=== PATIENT | female | born 2000 | race African-American/Black ===

== ENCOUNTER 2022-12-26 20:01 | Emergency (ER) | payer SELFPAY ==
[2022-12-26] MEDS ORDERED: KETOROLAC 30 MG/ML INJ ONE (21:49)
[2022-12-26 21:55] LABS: Absolute Lymphocytes (CBC) 2.1 K/uL (0.7-4.9); Hematocrit 37.8 % (36.0-45.0); MCV 85.2 fL (80-100); MPV 10.2 fL (7.6-11.3); RBC Red Blood Cell Count 4.44 M/uL (3.86-4.86)
[2022-12-26 22:00] LABS: SARS-CoV-2 Antigen Rapid Res Negative (Negative)
[2022-12-26 22:10] LABS: Magnesium 2.2 mg/dL (1.6-2.4); Potassium 3.5 mEq/L (3.5-5.1)
[2022-12-26 22:29] LABS: Protime INR 1.13
--- NOTE | 2022-12-26 22:40 | RAD REPORT ---
EXAM DESCRIPTION: [place] Single View12/26/2022 10:26 pm CLINICAL HISTORY: SOBChest pain COMPARISON: No comparisons TECHNIQUE: Portable AP view of the chest. FINDINGS: The lungs are clear. No pneumothorax or effusion. The cardiomediastinal contours are unre markable. IMPRESSION: No acute cardiopulmonary process.
[2022-12-26 22:57] LABS: Specific Gravity 1.006 (1.005-1.030); Urine Bacteria <20 /HPF (<20); Urine Bilirubin NEGATIVE (Negative); Urine Blood 1+ (Negative); Urine Clarity Clear (Clear); Urine Color Colorless (Yellow); Urine Glucose NEGATIVE (Negative); Urine Mucus Slight /HPF (None Seen); Urine Protein NEGATIVE (Negative); Urine RBC <5 /HPF (None Seen); Urine Urobilinogen Normal (Normal); Urine pH 6.5 (5.0-7.0)
[2022-12-27 00:19] LABS: Specific Gravity 1.006 (1.005-1.030)
--- NOTE | 2022-12-27 02:32 | ER ---
Nurse's Notes [facility] Name: Christian Galindo Age: 22 yrs Sex: Female : 2000 Arrival Date: 12/26/2022 Time: 20:01 Bed 18 Private MD: Diagnosis: Chest pain, unspecified;Dorsalgia, unspecified;Shortness of breath Presentation: 12/26 20:21 Chief complaint: Patient states: "I'm having chest pain and shortness of breath that's vc1 radiating to my back. I checked my temperature before I left the house and felt like I was running a temperature.". Coronavirus screen: Vaccine status: Patient reports receiving the 2nd dose of the covid vaccine. Moderna Client denies travel out of the [place] in the last 14 days. chills, difficulty breathing, fatigue, fever, shortness of breath, Client presents with at least one sign or symptom that may indicate coronavirus-19. Ebola Screen: Patient negative for fever greater than or equal to 101.5 degrees Fahrenheit, and additional compatible Ebola Virus Disease symptoms Patient denies exposure to infectious person. Patient denies travel to an Ebola-affected area in the 21 days before illness onset. No symptoms or risks identified at this time. Initial Sepsis Screen: Does the patient meet any 2 criteria? HR > 90 bpm. No. Patient's initial sepsis screen is negative. Does the patient have a suspected source of infection? No. Patient's initial sepsis screen is negative. Risk Assessment: Do you want to hurt yourself or someone else? Patient reports no desire to harm self or others. Onset of symptoms was December 24, 2022. 20:21 Method Of Arrival: Ambulatory vc1 20:21 Acuity: GONZÁLEZ 3 vc1 Triage Assessment: 20:24 General: Appears in no apparent distress. uncomfortable, ill, Behavior is calm, vc1 cooperative, appropriate for age. Pain: Complains of pain in chest Pain radiates to back Pain currently is 9 out of 10 on a pain scale. Quality of pain is described as sharp, Aggravated by cough. EENT: Reports post nasal drainage. Neuro: Level of Consciousness is awake, alert, obeys commands, Oriented to person, place, time, situation, Appropriate for age. Cardiovascular: Reports chest pain, Chest pain is described as severe, quality is sharp, radiates back is aggravated by breathing, cough. Respiratory: Airway is patent Respiratory effort is even, unlabored, Respiratory pattern is regular, symmetrical. Respiratory: Reports shortness of breath at rest pain with cough. GI: No deficits noted. No signs and/or symptoms were reported involving the gastrointestinal system. : No deficits noted. No signs and/or symptoms were reported regarding the genitourinary system. Derm: No deficits noted. No signs and/or symptoms reported regarding the dermatologic system. Musculoskeletal: No deficits noted. No signs and/or symptoms reported regarding the musculoskeletal system. 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 - Social history:: Smoking status: Patient denies any tobacco usage or history of. Screenin:20 [facility] ED Fall Risk Assessment (Adult) History of falling in the last 3 months, vc1 including since admission No falls in past 3 months (0 pts) Confusion or Disorientation No (0 pts) Intoxicated or Sedated No (0 pts) Impaired Gait No (0 pts) Mobility Assist Device Used No (0 pt) Altered Elimination No (0 pt) Score/Fall Risk Level 0 - 2 = Low Risk Oriented to surroundings, Maintained a safe environment, Educated pt \\T\\ family on fall prevention, incl call for assistance when getting out of bed. 12/27 02:33 Abuse screen: Denies threats or abuse. Denies injuries from another. Nutritional ha1 screening: No deficits noted. Tuberculosis screening: No symptoms or risk factors identified. Assessment: 12/26 20:20 General: Appears comfortable, Behavior is calm, cooperative. Pain: Complains of pain in ha1 back and chest Pain does not radiate. Pain at worst was 7 out of 10 on a pain scale. Quality of pain is described as pressure, Pain began gradually, 2-3 days ago. Neuro: Level of Consciousness is awake, alert, obeys commands, Oriented to person, place, time, situation. Cardiovascular: Heart tones S1 S2 present Patient's skin is warm and dry. Rhythm is sinus rhythm. Respiratory: Airway is patent Respiratory effort is even, unlabored, Respiratory pattern is regular, symmetrical. 21:20 Reassessment: Patient and/or family updated on plan of care and expected duration. Pain ha1 level reassessed. Patient is alert, oriented x 3, equal unlabored respirations, skin warm/dry/pink. 22:20 Reassessment: Patient and/or family updated on plan of care and expected duration. Pain ha1 level reassessed. Patient is alert, oriented x 3, equal unlabored respirations, skin warm/dry/pink. 23:20 Reassessment: Patient and/or family updated on plan of care and expected duration. Pain ha1 level reassessed. Patient is alert, oriented x 3, equal unlabored respirations, skin warm/dry/pink. Patient states feeling better. Patient states symptoms have improved. 12/27 00:20 Reassessment: Patient and/or family updated on plan of care and expected duration. Pain ha1 level reassessed. Patient is alert, oriented x 3, equal unlabored respirations, skin warm/dry/pink. Patient states feeling better. Patient states symptoms have improved. 01:20 Reassessment: No changes from previously documented assessment. Patient and/or family vc1 updated on plan of care and expected duration. Pain level reassessed. Patient is alert, oriented x 3, equal unlabored respirations, skin warm/dry/pink. 02:20 Reassessment: No changes from previously documented assessment. Patient and/or family vc1 updated on plan of care and expected duration. Pain level reassessed. Patient is alert, oriented x 3, equal unlabored respirations, skin warm/dry/pink. 02:41 Reassessment: Patient and/or family updated on plan of care and expected duration. Pain ha1 level reassessed. Patient is alert, oriented x 3, equal unlabored respirations, skin warm/dry/pink. Vital Signs: 12/26 20:21 BP 139 / 90; Pulse 108; Resp 15; Temp 99.6; Pulse Ox 100% ; Weight 64.41 kg; Height 5 vc1 ft. 1 in. ; Pain 6/10; 21:20 BP 135 / 85; Pulse 93; Resp 18 S; Temp 99.5; Pulse Ox 98% on R/A; ha1 21:20 BP 123 / 77; Pulse 95; Resp 18 S; Pulse Ox 98% on R/A; ha1 22:20 BP 115 / 67; Pulse 80; Resp 17 S; Pulse Ox 100% on R/A; ha1 23:20 BP 110 / 62; Pulse 88; Resp 17 S; Pulse Ox 100% on R/A; ha1 12/27 00:20 BP 121 / 72; Pulse 94; Resp 18 S; Pulse Ox 100% on R/A; ha1 01:00 BP 113 / 71; Pulse 81; Resp 16; Pulse Ox 100% ; vc1 01:45 BP 117 / 70; Pulse 76; Resp 14; Pulse Ox 100% ; vc1 12/26 20:21 Body Mass Index 26.83 (64.41 kg, 154.94 cm) vc1 12/26 20:21 Pain Scale: Adult vc1 ED Course: 12/26 20:04 Patient arrived in ED. ja2 20:20 Patient maintains SpO2 saturation greater than 95% on room air. ha1 20:21 Vitaliy Donnelly PA is PHCP. cp 20:21 Sameer Noriega MD is Attending Physician. cp 20:23 Triage completed. vc1 20:24 Arm band placed on right wrist. vc1 21:25 Patient has correct armband on for positive identification. Bed in low position. Call vc1 light in reach. Client placed on continuous cardiac and pulse oximetry monitoring. NIBP monitoring applied. 21:36 Dora Donald, RN is Primary Nurse. ha1 21:45 Initial lab(s) drawn, by me, sent to lab. COVID swab sent to lab. Flu and/or RSV swab jw7 sent to lab. Strep swab sent to lab. Inserted saline lock: 20 gauge in right antecubital area, using aseptic technique. Blood collected. 22:03 D-Dimer Sent. ha1 22:03 Basic Metabolic Panel Sent. ha1 22:03 Magnesium Sent. ha1 22:03 NT PRO-BNP Sent. ha1 22:03 PT-INR Sent. ha1 22:03 Troponin HS Sent. ha1 22:27 XRAY Chest (1 view) In Process Unspecified. EDMS 23:24 Radiology exam delayed due to test not completed at this time. eh4 12/27 00:53 CT Chest For PE Angio In Process Unspecified. EDMS 02:34 No provider procedures requiring assistance completed. Patient maintains SpO2 vc1 saturation greater than 95% on room air. 02:42 No provider procedures requiring assistance completed. IV discontinued, intact, ha1 bleeding controlled, No redness/swelling at site. Pressure dressing applied. Administered Medications: 12/26 22:01 Drug: Ketorolac IVP 15 mg Route: IVP; Site: right antecubital; ha1 22:30 Follow up: Response: No adverse reaction; Pain is decreased ha1 Medication: 12/27 02:35 VIS not applicable for this client. vc1 Outcome: 02:31 Discharge ordered by MD. cp 02:42 Discharged to home ambulatory, with family. ha1 02:42 Condition: stable 02:42 Discharge instructions given to patient, family, Instructed on discharge instructions, follow up and referral plans. medication usage, Demonstrated understanding of instructions, follow-up care, medications, Prescriptions given X 2. 02:43 Patient left the ED. ha1 Signatures: Dispatcher [employer] EDMS Vitaliy Donnelly PA PA cp Alexander, Jessica ja2 Yumiko Younger RN RN vc1 Yumiko Palm jw7 Dora Donald RN RN ha1 Tejal Walker 4
--- NOTE | 2022-12-27 02:32 | EDPHYS ---
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 - Social history:: Smoking status: Patient denies any tobacco usage or history of. Exam: 20:37 ECG was reviewed by the Attending Physician. cp Vital Signs: 20:21 BP 139 / 90; Pulse 108; Resp 15; Temp 99.6; Pulse Ox 100% ; Weight 64.41 kg; Height 5 vc1 ft. 1 in. ; Pain 6/10; 21:20 BP 135 / 85; Pulse 93; Resp 18 S; Temp 99.5; Pulse Ox 98% on R/A; ha1 21:20 BP 123 / 77; Pulse 95; Resp 18 S; Pulse Ox 98% on R/A; ha1 22:20 BP 115 / 67; Pulse 80; Resp 17 S; Pulse Ox 100% on R/A; ha1 23:20 BP 110 / 62; Pulse 88; Resp 17 S; Pulse Ox 100% on R/A; ha1 0708 00:20 BP 121 / 72; Pulse 94; Resp 18 S; Pulse Ox 100% on R/A; ha1 01:00 BP 113 / 71; Pulse 81; Resp 16; Pulse Ox 100% ; vc1 01:45 BP 117 / 70; Pulse 76; Resp 14; Pulse Ox 100% ; vc1 12/26 20:21 Body Mass Index 26.83 (64.41 kg, 154.94 cm) vc1 12/26 20:21 Pain Scale: Adult vc1 MDM: 12/26 20:22 Patient medically screened. cp 12/26 21:16 Order name: Influenza Screen (a \T\ B); Complete Time: 23:06 cp 12/26 21:16 Order name: Strep cp 12/26 21:16 Order name: SARS RAPID; Complete Time: 23:06 cp 12/26 21:16 Order name: Basic Metabolic Panel; Complete Time: 23:06 cp 12/26 23:06 Interpretation: Normal except: CL 108; CRE 1.04; GFR 78. cp 12/26 21:16 Order name: CBC with Diff; Complete Time: 23:06 cp 12/26 23:06 Interpretation: Reviewed. cp 12/26 21:16 Order name: Magnesium; Complete Time: 23:06 cp 12/26 21:16 Order name: NT PRO-BNP; Complete Time: 23:06 cp 12/26 21:16 Order name: PT-INR; Complete Time: 23:06 cp 12/26 21:16 Order name: Troponin HS; Complete Time: 23:06 cp 12/26 21:16 Order name: PREGU; Complete Time: 02:31 cp 12/26 21:16 Order name: Urinalysis W/Microscopic; Complete Time: 23:06 cp 12/26 21:16 Order name: D-Dimer; Complete Time: 23:06 cp 12/26 22:29 Order name: Throat Culture EDAK 12/26 21:16 Order name: XRAY Chest (1 view); Complete Time: 23:06 cp 12/26 23:07 Order name: CT Chest For PE Angio cp 12/26 21:16 Order name: EKG; Complete Time: 21:17 cp 12/26 21:16 Order name: Cardiac monitoring; Complete Time: 21:36 cp 12/26 21:16 Order name: EKG - Nurse/Tech; Complete Time: 21:45 cp 12/26 21:16 Order name: IV Saline Lock; Complete Time: 21:45 cp 12/26 21:16 Order name: Labs collected and sent; Complete Time: 21:45 cp 12/26 21:16 Order name: O2 Per Protocol; Complete Time: 21:45 cp 12/26 21:16 Order name: O2 Sat Monitoring; Complete Time: 21:45 cp EC:37 Rate is 113 beats/min. Rhythm is regular. PA interval is normal. QRS interval is cp normal. QT interval is normal. T waves are Inverted in leads aVF, V3, V4, V5. Interpreted by me. Reviewed by me. Administered Medications: 22:01 Drug: Ketorolac IVP 15 mg Route: IVP; Site: right antecubital; ha1 22:30 Follow up: Response: No adverse reaction; Pain is decreased ha1 Disposition Summary: 12/27/22 02:31 Discharge Ordered Location: Home cp Problem: new cp Symptoms: have improved cp Condition: Stable cp Diagnosis - Chest pain, unspecified cp - Dorsalgia, unspecified cp - Shortness of breath cp Followup: cp - With: Private Physician - When: 2 - 3 days - Reason: Recheck today's complaints Discharge Instructions: - Discharge Summary Sheet cp - Acute Back Pain, Adult cp - Nonspecific Chest Pain, Adult cp - Shortness of Breath, Adult cp Forms: - Medication Reconciliation Form cp - Thank You Letter cp - Antibiotic Education cp - Prescription Opioid Use cp - [email or web address] cp Prescriptions: - albuterol sulfate 90 mcg/actuation Inhalation HFA Aerosol Inhaler - inhale 1 puff by INHALATION route every 4-6 hours As needed administer via cp ventilator; 1 unit; Refills: 0, Product Selection Permitted - Diclofenac Sodium 75 mg Oral Tablet Sustained Release - take 1 tablet by ORAL route 2 times per day; 30 tablet; Refills: 0, Product cp Selection Permitted Addendum: 12/29/2022 10:48 Co-signature as Attending Physician, Sameer Noriega MD I reviewed the patient's care r n provided by the Advanced Practice Provider and agree with the diagnosis and treatment plan. Signatures: Dispatcher [employer] Sameer Saldana MD MD rn Attema, Lee, STRIKE PLATE ATTACHER-C STRIKE PLATE ATTACHER-[facility] Vitaliy Donnelly PA PA cp Yumiko Younger RN RN vc1 Dora Donald RN RN ha1
[2022-12-27 04:29] VITALS: TEMP 99.5
[2022-12-27 04:31] VITALS: O2SAT 100
[2022-12-27 04:38] VITALS: BP 117/70
--- NOTE | 2022-12-27 16:17 | EKG ---
Test Date: 2022-12-26 Test Time: 20:31:53 Patent Leather Sorter: KAREN MEASUREMENT RESULTS: Intervals: Rate: 91 AR: 136 QRSD: 66 QT: 342 QTc: 420 [place]: P: 78 AR: 136 QRS: 76 T: 21 INTERPRETIVE STATEMENTS: Normal sinus rhythm Nonspecific T wave abnormality Abnormal ECG No previous ECG available for comparison Electronically Signed On 12-27-22 16:16:22 CDT by Felipe Gutierrez
--- NOTE | 2022-12-27 22:07 | RAD REPORT ---
EXAM DESCRIPTION: CT - Chest For Pe Angio - 12/27/2022 6:25 am CLINICAL HISTORY: CHEST PAIN TECHNIQUE: Contiguous axial images obtained through the chest during angiographic phase following th e uneventful administration of IV contrast. Sagittal and coronal reformatted images were provided. 3- D MIP reformatted images were provided. This exam was performed according to our departmental dose-optimization program, which includes autom ated exposure control, adjustment of the mA and/or kV according to patient size and/or use of iterati ve reconstruction technique. COMPARISON: No prior exams provided for comparison. FINDINGS: Diagnostic quality: There is limited opacification of the pulmonary arterial tree. Lungs: No focal consolidation. Airways are patent. Pleura: No effusion. No pneumothorax. Heart and pericardium: The heart is normal in size. No pericardial effusion. Mediastinum and mindy: No pathologically enlarged lymph nodes. Lower neck and chest wall: Unremarkable Vessels: No evidence is seen of large central pulmonary emboli. Significant segmental and subsegmental pulmonary emboli cannot be excluded based on this examination due to limited opacification of the pulmonary arteries. No thoracic aortic aneurysm. Upper abdomen: Unremarkable Bones: Unremarkable IMPRESSION: 1. No evidence is seen of large central pulmonary emboli. Significant segmental and lacey bsegmental pulmonary emboli cannot be excluded based on this examination due to limited opacification of the pulmonary arteries. Consider repeat when clinically feasible. 2. No focal consolidation. Electronically signed by: Familia Delvalle MD 12/27/2022 1:15 AM CDT Due to temporary technical issues with the PACS/Fluency reporting system, reports are being signed by the in house radiologists without review as a courtesy to insure prompt reporting. The interpreting radiologist is fully responsible for the content of the report.
--- NOTE | 2022-12-29 17:18 | EKG ---
Test Date: 2022-12-26 Test Time: 20:32:30 Cross Tie Maker: KAREN MEASUREMENT RESULTS: Intervals: Rate: 113 MA: 134 QRSD: 66 QT: 308 QTc: 422 [place]: P: 74 MA: 134 QRS: 81 T: -13 INTERPRETIVE STATEMENTS: Sinus tachycardia T wave abnormality, consider anterior ischemia Abnormal ECG Compared to ECG 12/26/2022 20:31:53 Possible ischemia now present Sinus rhythm no longer present T-wave abnormality still present Electronically Signed On 12-29-22 17:14:04 CDT by Felipe Gutierrez
== END 2022-12-27 02:43 | disposition home or self-care (01) ==
LOC: ER 20:01
DX: R07.9 Chest pain, unspecified (principal); I10 Essential (primary) hypertension; M54.9 Dorsalgia, unspecified; R06.02 Shortness of breath; Z20.822 Contact with and (suspected) exposure to COVID-19
CPT/HCPCS: 36415; 71045; 71275; 80048; 81001; 81025; 83735; 83880; 84484; 85025; 85379; 85610; 87070; 87081; 87804; 87811; 93005; 96374; 99285; Q9967